=== PATIENT | male | born 1950 | race Caucasian/White ===

== ENCOUNTER 2023-10-21 05:35 | Day surgery (SDC) | payer BC, SELFPAY ==
[2023-10-16 10:32] VITALS: BMI 27.3
[2023-10-16 11:54] LABS: Basophils # (Auto) 0.1 Thou/mm3 (0.0-0.2); Basophils % (Auto) 1 % (0-2.5); Eosinophils # (Auto) 0.5 Thou/mm3 (0.0-0.5); Eosinophils % (Auto) 7 % (0-10); Hematocrit 41.4 % (41.0-53.0); Hemoglobin 14.6 g/dL (13.5-16.0); Immature Granulocytes % (Auto) 0 % (0-0); Immature Granulocytes Auto 0.02 Thou/mm3 (0.00-0.00); Lymphocytes % (Auto) 29 % (10-50); Mean Corpuscular HGB Conc 35.3 g/dl (31.0-37.0); Mean Corpuscular Hemoglobin 34.2 pg (25.0-35.0); Mean Corpuscular Volume 97 fL (80-100); Monocytes # (Auto) 0.7 Thou/mm3 (0.0-0.8); Monocytes % (Auto) 10 % (0-12); Neutrophils # (Auto) 3.8 Thou/mm3 (1.8-7.7); Neutrophils % (Auto) 54 % (37-80); Nucleated Red Blood Cell % 0 /100 WBC (0); Platelet Count 203 Thou/mm3 (140-440); RDW Standard Deviation 41.8 fL (35.1-43.9); Red Blood Count 4.27 Miln/mm3 (4.50-5.90); White Blood Count 7.1 Thou/mm3 (3.8-10.6)
[2023-10-16 12:16] LABS: Alanine Aminotransferase 28 U/L (10-49); Albumin, Serum 4.6 gm/dL (3.4-4.8); Albumin/Globulin Ratio 2.3 (1.2-2.2); Alkaline Phosphatase 54 U/L (46-116); Anion Gap 7 (7-16); Aspartate Amino Transferase 25 U/L (0-34); BUN/Creatinine Ratio 21 Ratio (12-20); Bilirubin,Total 0.6 mg/dL (0.3-1.2); Blood Urea Nitrogen 17 mg/dL (9-23); Calcium 10.3 mg/dL (8.3-10.6); Calcium (Corrected) 10.3 mg/dL (8.5-10.1); Carbon Dioxide 28.3 mMol/L (20.0-31.0); Chloride 103 mMol/L (98-107); Creatinine (Component) 0.8 mg/dL (0.6-1.3); Estimated Creatinine Clearance 81.9 mL/min (>60); Glucose 118 mg/dL (74-106); Osmolality,Calculated 278 (275-295); Partial Thromboplastin Time 27.5 Seconds (22.0-36.0); Potassium 4.6 mMol/L (3.4-5.1); Prothrombin Time 11.4 Seconds (9.0-12.2); Sodium 138 mMol/L (136-145); Total Protein 6.6 gm/dL (5.7-8.2); eGFR > 60 See Note
--- NOTE | 2023-10-18 14:16 | SUR.PREOP ---
Reviewed EKG with Dr Mccray, no new orders, okay to proceed with procedure.
--- NOTE | 2023-10-18 16:08 | ESHP_ITS ---
RE: DENISE TORRES : 1950 DATE OF ADMISSION: 10/21/2023 CHIEF COMPLAINT: Numbness and tingling in both right and left hands, left more so than right. EMG and nerve conduction study consists with bilateral carpal tunnel syndrome. He is scheduled for a left carpal tunnel release. PAST MEDICAL HISTORY: Reviewed. PAST SURGICAL HISTORY: Tonsillectomy. ALLERGIES: NONE. MEDICATIONS: Dictation Ends Here DT: 14:21:43 TT: 16:06:00 Ref: [id number] - TID: [id number]
--- NOTE | 2023-10-18 16:34 | ESHP_ITS ---
RE: DENISE TORRES : 1950 DATE OF ADMISSION: 10/21/2023 CHIEF COMPLAINT: Numbness and tingling in both hands. HISTORY OF PRESENT ILLNESS: The patient is a 72-year-old male who has developed numbness and tingling in both hands. EMG and nerve conduction studies consistent with bilateral carpal tunnel syndrome, left more symptomatic than right. PAST MEDICAL HISTORY: Reviewed. , with two children. PAST SURGICAL HISTORY: Tonsillectomy. ALLERGIES: NONE. MEDICATIONS: 1. Rosuvastatin 2. Sotalol. 3. Amlodipine. 4. Lisinopril. MAJOR MEDICAL ILLNESSES: 1. Prediabetes. 2. Atrial fibrillation. FAMILY HISTORY: Positive for prostate cancer. No family history of TB, asthma, glaucoma, heart disease, heart attack, liver disease, hypertension, emphysema, stroke, epilepsy, bleeding disorder, ulcer. REVIEW OF SYSTEMS: Weight stable, appetite good, energy level good. Denies chest pain, shortness of breath, orthopnea, paroxysmal nocturnal dyspnea, dyspnea on exertion, productive cough, hemoptysis. No nausea, vomiting, diarrhea, constipation, hematemesis, hematochezia, melena, black tarry bowel movements. Denies dysuria or prior hematuria. Denies stroke, seizures, syncopal episodes. Does complain of weakness in his hands and feet. Recent diagnostic studies showed bilateral carpal tunnel syndrome and bilateral tarsal tunnel syndrome. SOCIAL HISTORY: Does not smoke. He has 2 drinks per day. PHYSICAL EXAMINATION: GENERAL: Shows well-developed, well-nourished male, in no acute distress. HEENT: Normocephalic without masses. EOMs full. Throat clear. NECK: Supple. CHEST: Clear to P and A. CARDIOVASCULAR: Heart regular rate and rhythm. No murmurs or gallops. ABDOMEN: Soft, nontender. No masses. No organomegaly. BREASTS: Deferred. RECTAL: Deferred. GENITAL: Deferred. EXTREMITIES: Shows that he has weakness bilaterally. There is a slight loss of muscle mass, thenar eminence. Able to flex fingers to distal palmar crease and abduction, adduction of his fingers. EMG and nerve conduction study consistent with bilateral carpal tunnel syndrome. PLAN: Release of left carpal tunnel. Risks of the procedure explained to the patient. The patient understands and willing to proceed. DT: 14:25:52 TT: 16:28:00 Ref: [id number] - TID: [id number]
[2023-10-21] VITALS (7 sets, daily range): BP systolic 112–125; BP diastolic 65–77; PULSE 60–70; RESP 13–22; TEMP 36.2–36.4; O2SAT 93–96; BMI 27.2
--- NOTE | 2023-10-21 07:05 | XR_ITS ---
Examination: AP chest single view TECHNIQUE: AP portable upright chest single view Exam date and time: October 21, 2023 0745 hours INDICATIONS: Preop FINDINGS: Normal heart size No pneumonia or pulmonary edema Mild osteopenia IMPRESSION: No active disease
--- NOTE | 2023-10-21 08:44 | SUR.PHASEI ---
0844: Pt. AAOx4, vitals stable, breathing unlabored, no complaint of pain or nausea, dressing to left wrist CDI, No active bleed noted, bilateral brachial pulses strong and regular, pt. able to wiggle bilateral fingers. Report received from Andrea TIDWELL and Santa OJEDA.
--- NOTE | 2023-10-21 09:35 | SUR.PHASEII ---
0935: Pt. AAOx4, vitals stable, breathing unlabored, no complaint of pain or nausea, cap refill to bilateral hands less than 3 seconds, bilateral brachial pulses strong and regular, pt. able to wiggle bilateral fingers, pt. tolerated sips of water well, pt. ambulated to wheelchair with steady gait and no assist, no complicatoins. Gave discharge instructions to the pt. and his , both verbalized understanding and had no further questions. Pt. left with all personal belongings.
--- NOTE | 2024-04-20 09:15 | PD.SUROPNT ---
Date of Procedure 10/23/23 Pre Op Diagnosis Left carpal tunnel syndrome Post Op Diagnosis Left carpal tunnel syndrome Procedure Release of left carpal tunnel Findings Thick transverse carpal ligament left hand Procedure Description Patient was taken to the operating room and left upper extremity was identified as the correct extremity. Patient received 2 g of IV Ancef. General anesthesia was accomplished without difficulty. The left upper extremity was then prepped and draped in standard fashion. The arm was elevated and exsanguinated with an Esmarch bandage. The tourniquet was plated to 200 mmHg. A longitudinal incision was made over the palmar aspect of the hand. The palmar aponeurosis was divided. The transverse carpal ligament was identified and then incised distally with a #15 blade and proximally into the distal antebrachial fascia using a small curved strabismus scissors. The nerve was noted to be pinched deep to the transverse carpal ligament there was no epineurial thickening minimal hyperemia was noted. The nerve was inspected and noted to be released in its entirety. Wound was copiously irrigated with saline solution and closed with 4-0 and 5-0 nylon suture. Sponge needle counts correct. He was taken recovery met eventfully Anesthesia GETA Drains None Implants None Pathology / specimen None IVF Infused 650 Urine Output 0 Estimated Blood Loss 5 Condition Stable Disposition PACU Surgeon Drew Phan MD Surgical Staff Operation Date: 10/21/23 07:30 Case Staff AUTOMATIC WINDER OPERATOR: Jeremy Gupta
--- NOTE | 2024-04-20 09:21 | PD.SUROPNT ---
Date of Procedure 10/23/23 Pre Op Diagnosis Left carpal tunnel Post Op Diagnosis Left carpal tunnel Procedure Release of left carpal tunnel Findings Thick transverse carpal ligament Procedure Description Patient was taken the operating room and the left upper extremity was noted to be the correct extremity. Patient received 2 g of Ancef. Satisfactory general anesthesia was achieved. The arm was elevated exsanguinated with an Esmarch bandage after the arm had been prepped in standard fashion. A longitudinal incision was made over the transverse carpal ligament. The subcutaneous tissue was divided and the palmar aponeurosis was identified and incised with a strabismus scissors. The transverse carpal ligament was incised distally with a #15 blade and proximally into the distal antebrachial fascia using a small curved strabismus scissors. The nerve was released completely. The tourniquet was deflated and small bleeders were electrocoagulated good hemostasis was achieved the skin was closed with interrupted 4-0 and 5-0 nylon suture using a simple suture technique and a vertical mattress technique. A bulky dressing was applied using Dakin soaked Kerlix sponges dry Kerlix sponges 4 inch cut bias. He was awakened without difficulty He was taken recovery met eventfully. Fluids 300 mL Anesthesia GETA Drains None Implants None Pathology / specimen None IVF Infused 300 Urine Output 0 Estimated Blood Loss 5 Condition Stable Disposition PACU Surgeon Drew Phan MD Surgical Staff Operation Date: 10/21/23 07:30 Case Staff C[employer]ER [employer]UTIONS REPRESENTATIVE: Jeremy Gupta
== END 2023-10-21 09:35 | disposition home or self-care (01) ==
PROVIDERS: Referring Provider Orthopaedic Surgery; Visit Provider Orthopaedic Surgery
PROC: (CPT 64721; principal; 2023-10-21 07:30)
DX: G56.02 Carpal tunnel syndrome, left upper limb (principal)
CPT/HCPCS: 29848; 36415; 71045; 80053; 85025; 85610; 85730; A4649; J1100; J2405; J2704; J2795; J3010; J3490; A9270